=== PATIENT | female | born 1970 | race Caucasian/White ===

== ENCOUNTER 2024-07-03 08:59 | Emergency (ER) | payer OTHER, SELFPAY ==
[2024-07-03] VITALS (11 sets, daily range): BP systolic 101–142; BP diastolic 59–83; PULSE 64–96; RESP 16; TEMP 36.7; O2SAT 94–98; BMI 32.9
--- NOTE | 2024-07-03 09:31 | ED_ITS ---
HPI - Female Genitourinary General Chief complaint: Vaginal Bleeding Stated complaint: Post-Menopausal Vaginal Bleeding Time Seen by Provider: 07/03/24 09:10 Source: patient Mode of arrival: Ambulatory History of Present Illness HPI Narrative: Patient is a 54-year-old female postmenopausal presenting today with vaginal bleeding. She reports that her last period was about 2 years ago. However last August she did have some mild vaginal spotting she had a biopsy at that time which was negative. She then got started on HRT she has an estradiol patch and progesterone which he started taking back in January. She has been doing well. 4 days ago she started having some vaginal bleeding. She reports yesterday she was changing a super tampon every hour but bleeding has since slowed. She has no abdominal cramping no dizziness or lightheadedness. 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 and luci Related Data Previous Rx's Medication Instructions Recorded medroxyprogesterone 10 mg tablet 10 mg PO DAILY #20 tabs 07/03/24 (Provera) Allergies Allergy/AdvReac Type Severity Reaction Status Date / Time No Known Drug Allergies Allergy Verified 07/03/24 09:12 Exam Initial Vital Signs Initial Vital Signs: Vital Signs Temperature 98.0 F 07/03/24 09:09 Pulse Rate 96 H 07/03/24 09:09 Respiratory Rate 16 07/03/24 09:09 Blood Pressure 142/83 H 07/03/24 09:09 Pulse Oximetry 97 07/03/24 09:09 Oxygen Delivery Method Room Air 07/03/24 09:09 GENERAL: Alert well-appearing 54-year-old female and in no acute distress. HEENT: Head atraumatic,EOMI, pupils reactive, face symmetric, moist mucous membranes CARDIOVASCULAR: Regular rate and rhythm without murmurs, rubs or gallops. RESPIRATORY: Breath sounds equal bilaterally, no wheezes rales or rhonchi. ABDOMEN: Soft, nontender. Normoactive bowel sounds all 4 quadrants. No guarding or rebound. EXTREMITIES: Normal range of motion, no clubbing or edema. Neurovascularly intact NEUROLOGICAL: Alert and oriented x4.Normal gait and speech. Cranial nerves II through XII grossly intact. SKIN: Warm, dry, no laceration, no petechiae, no rashes or lesions. Course Orders Ordered: ED Orders 07/03/24 09:31 US pelvic complete Stat 07/03/24 09:45 CBC Auto Diff [Complete Blood Count AUTO DIFF] Stat CMP [Comprehensive Metabolic Panel] Stat Discontinued Medications Medroxyprogesterone Acetate (Medroxyprogesterone Acetate 10 Mg Tablet) 20 mg PO NOW ONE Stop: 07/03/24 12:10 Last Admin: 07/03/24 12:34 Dose: 20 mg Documented By: JUAN M Vital Signs Vital signs: Vital Signs - 8 hr 07/03/24 09:09 07/03/24 09:09 07/03/24 09:30 Temperature 98.0 F Pulse Rate 96 H 78 72 Respiratory Rate 16 Blood Pressure 142/83 H Pulse Oximetry 97 98 97 Oxygen Delivery Method Room Air 07/03/24 09:30 07/03/24 10:00 07/03/24 10:00 Temperature Pulse Rate 67 Respiratory Rate Blood Pressure 117/75 101/66 Pulse Oximetry 96 Oxygen Delivery Method 07/03/24 10:30 07/03/24 10:30 07/03/24 10:33 Temperature Pulse Rate 64 64 Respiratory Rate Blood Pressure 110/68 Pulse Oximetry 95 95 Oxygen Delivery Method 07/03/24 10:46 07/03/24 11:00 07/03/24 11:08 Temperature Pulse Rate 74 Respiratory Rate Blood Pressure 118/75 118/74 Pulse Oximetry 95 Oxygen Delivery Method 07/03/24 11:30 07/03/24 11:30 07/03/24 12:00 Temperature Pulse Rate 67 Respiratory Rate Blood Pressure 107/67 115/75 Pulse Oximetry 97 Oxygen Delivery Method 07/03/24 12:00 07/03/24 12:30 07/03/24 12:30 Temperature Pulse Rate 68 66 Respiratory Rate Blood Pressure 102/59 L Pulse Oximetry 94 95 Oxygen Delivery Method MDM - Female Genitourinary Lab Data 07/03/24 09:45 07/03/24 09:45 Labs: Lab Results 07/03/24 Range/Units 09:45 WBC 7.6 (4.5-11.0) X10^3/uL RBC 3.99 L (4.0-5.2) X10^6/uL Hgb 12.9 (12.0-16.0) g/dL Hct 37.9 (36-46) % MCV 94.9 (80-100) fL MCH 32.2 (26-34) PG MCHC 34.0 (30-36) % RDW 13.4 (11.6-14.8) % Plt Count 267 (150-400) X10^3/uL Neut % (Auto) 66.4 (50-75) % Lymph % (Auto) 23.8 L (25-40) % [place] % (Auto) 7.2 (3-14) % Eos % (Auto) 1.8 L (2-4) % Baso % (Auto) 0.8 (0-2) % Neut # (Auto) 5000 (0058-7691) /uL Lymph # (Auto) 1800 (2568-8633) /uL [place] # (Auto) 500 (0-900) /uL Eos # (Auto) 100 (0-450) /uL Baso # (Auto) 100 (0-100) /uL Sodium 137 (137-145) mmol/L Potassium 4.1 (3.4-5.1) mmol/L Chloride 105 (98-107) mmol/L Carbon Dioxide 25 (22-32) mmol/L BUN 14 (7-17) mg/dL Creatinine 0.88 (0.52-1.04) mg/dL Estimated GFR > 60 (>60) mL/min BUN/Creatinine Ratio 15.9 (6-22) Glucose 99 (70-100) mg/dL Calcium 9.0 (8.4-10.2) mg/dL Total Bilirubin 1.2 (0.2-1.3) mg/dL AST 31 (14-36) IU/L ALT 32 (<35) IU/L Alkaline Phosphatase 58 (38-126) U/L Total Protein 7.6 (6.3-8.2) g/dL Albumin 4.5 (3.5-5.0) g/dL Globulin 3.1 (1.7-4.1) g/dL Albumin/Globulin Ratio 1.5 (1.0-2.8) Urine Dip Bedside Urine Glucose Negative Bedside Urine Bilirubin - Negative Bedside Urine Ketone - Negative Urine Specific [place] 1.015 Bedside Urine Occult Blood +++ Bedside Urine pH 6.5 Bedside Urine Protein - Negative Bedside Urine Urobilinogen - Negative Bedside Urine Nitrite - Negative Bedside Urine Leukocytes - Negative Esterase Imaging Data US - [employer] INST[employer]ER: Radiologist's Impression: PROCEDURE: US PELVIC COMPLETE INDICATIONS: post menopausal bleeding TECHNIQUE: Real-time scanning was performed of the pelvic organs, with image documentation. Additional endovaginal scanning was necessary due to incomplete visualization of the adnexal and endometrial structures by transabdominal scanning. COMPARISON: None. FINDINGS: Uterus: Uterus is anteverted and measures 12.9 x 8.9 x 8.3 cm. The myometrium is heterogeneous with numerous intramural fibroids, the largest of which measures 4.2 x 3.7 x 4.1 cm.. The endometrium measures 7 mm combined thickness. Nabothian cysts are reported within the cervix. Ovaries: Not well seen. Other: There is a small amount of fluid within the posterior cul-de-sac, likely physiologic. IMPRESSION: Bulky fibroid uterus without acute abnormality. We strive to produce accurate, complete, and clear reports of imaging services. To assist us in improving patient care, this report was composed using standard report templates and voice recognition software. Therefore, it may contain abnormal punctuation, insertions and/or omissions. Occasional wrong-word or sound-alike substitutions may occur. Though we review the report and make efforts to correct it, we do recommend that the report be read carefully in proper context to recognize any text inaccuracies. Dictated by: Alma Loco M.D. on 07/03/2024 at 10:50 MDM Narrative Medical decision making narrative: Patient 54-year-old female presenting today with postmenopausal bleeding. She has had hysteroscopy less than 1 year ago sounds like she had a biopsy then as well she would some vaginal bleeding ultimately placed on HRT in his now having increased vaginal bleeding. Blood work has been reviewed overall reassuring no evidence of anemia or electrolyte abnormalities, urinalysis positive for blood but no evidence of UTI Ultrasound does show multiple uterine fibroids with endometrial stripe [address] Perry, updated on symptoms test results state that patient can either stop taking HRT or Provera can be added and she needs follow up with her fiberglass boat assembly supervisor and probable hysterectomy. However nonemergent Patient updated on symptoms test results specialist recommendations. At this time she would like to take Provera she will call her fiberglass boat assembly supervisor tomorrow. She reports the bleeding has improved it has no longer extremely heavy. Given strict return precautions Discharge Plan Departure Patient Disposition: Home Clinical Impression: Fibroid uterus Instructions: DI for Uterine Fibroids Activity Restrictions/Additional Instructions: *You have been diagnosed with uterine fibroids *What to do: You do have multiple fibroids in your uterus. Please discuss with your fiberglass boat assembly supervisor your options *Continue to take medications as directed--> [facility] Provera 10 mg every 8 hours for 3 days Then 10 mg every 12 hours for 3 days 10 mg once a day for 3 days You can also stop all hormones including estradiol progesterone and Provera and ultimately your bleeding will stop and slow *Follow up with your primary care provider in 2-3 days or call [phone] Please call and follow-up with your fiberglass boat assembly supervisor *Return to ER if you should have increased vaginal bleeding more than 2 super tampons in 1 hour increased abdominal pain dizziness lightheadedness [or] any new, worsening or concerning symptoms Prescriptions: New medroxyprogesterone [Provera] 10 mg tablet 10 mg PO DAILY Qty: 20 0RF Stand Alone Forms: Patient Portal/API/Survey
[2024-07-03 09:52] LABS: Add Manual Diff / Slide Review NO; Basophils Absolute Auto 100 /uL (0-100); Basophils Percent Auto 0.8 % (0-2); Eosinophils Absolute Auto 100 /uL (0-450); Eosinophils Percent Auto 1.8 % (2-4); Hematocrit 37.9 % (36-46); Hemoglobin 12.9 g/dL (12.0-16.0); Lymphocytes Absolute Auto 1800 /uL (1100-4500); Lymphocytes Percent Auto 23.8 % (25-40); Mean Corpuscular Hemoglobin 32.2 PG (26-34); Mean Corpuscular Volume 94.9 fL (80-100); Monocytes Absolute Auto 500 /uL (0-900); Monocytes Percent Auto 7.2 % (3-14); Neutrophils Absolute Auto 5000 /uL (1500-7000); Neutrophils Percent Auto 66.4 % (50-75); Platelet Count 267 X10^3/uL (150-400); Red Blood Cell Count 3.99 X10^6/uL (4.0-5.2); Red Cell Distribution Width 13.4 % (11.6-14.8); White Blood Cell Count 7.6 X10^3/uL (4.5-11.0)
[2024-07-03 10:04] LABS: Alanine Aminotransferase 32 IU/L (<35); Albumin 4.5 g/dL (3.5-5.0); Albumin Globulin Ratio 1.5 (1.0-2.8); Alkaline Phosphatase 58 U/L (38-126); Aspartate Aminotransferase 31 IU/L (14-36); BUN Creatinine Ratio 15.9 (6-22); Bilirubin Total 1.2 mg/dL (0.2-1.3); Blood Urea Nitrogen 14 mg/dL (7-17); Carbon Dioxide 25 mmol/L (22-32); Chloride 105 mmol/L (98-107); Estimated Glomerular Filt Rate > 60 mL/min (>60); Globulin 3.1 g/dL (1.7-4.1); Glucose 99 mg/dL (70-100); HEMOLYSIS < 15 (0-50); Potassium 4.1 mmol/L (3.4-5.1); Sodium 137 mmol/L (137-145); Total Protein 7.6 g/dL (6.3-8.2)
[2024-07-03] MEDS: MEDROXYPROGESTERONE ACETATE 10 MG TABLET 20 MG PO (12:34)
== END 2024-07-03 12:41 | disposition home or self-care (01) ==
PROVIDERS: Emergency Provider Emergency Medicine
DX: D25.1 Intramural leiomyoma of uterus (principal)
CPT/HCPCS: 36415; 76830; 76856; 80053; 81003; 85025; 99283; 99284